=== PATIENT | female | born 1975 | race Caucasian/White ===

== ENCOUNTER 2017-11-09 12:32 | Emergency (ER) | payer OTHER ==
[~2017-11-09] VITALS: Ht 170.2 cm; Wt 69.4 kg
[2017-11-09 12:55] LABS: URINE BILIRUBIN NEGATIVE (Negative); URINE BLOOD 1+ (Negative); URINE CLARITY CLEAR; URINE COLOR YELLOW; URINE GLUCOSE-RANDOM NEGATIVE (Negative); URINE KETONES NEGATIVE (Negative); URINE LEUKOCYTES-REFLEX 1+ (Negative); URINE PROTEIN 1+ (Negative)
[2017-11-09 12:56] LABS: URINE NITRITE-REFLEX POSITIVE (Negative)
[2017-11-09 13:00] LABS: BACTERIA-REFLEX None Seen /HPF (None Seen); CASTS None Seen /LPF (None Seen); CRYSTALS None Seen /LPF (None Seen); MUCUS 0-3 Light strn/LPF (None Seen); SQUAMOUS 4-10 Moderate /LPF (0-3); URINE RBC 3-10 Few /HPF (0-2); URINE WBC-REFLEX 0-5 Rare /HPF (0-5)
[2017-11-09 13:31] LABS: ABSOLUTE EOSINOPHILS 0.1 thou/uL (0.0-0.7); ABSOLUTE LYMPHOCYTES 1.2 thou/uL (0.8-5.3); ABSOLUTE MONOCYTES 1.4 thou/uL (0.0-1.2); BASOPHILS 0.2 %; HEMATOCRIT 35.5 % (37.0-47.0); HEMOGLOBIN 11.7 gm/dL (12.0-15.0); MCH 29.6 pg (26.0-34.0); MCV 89.7 fL (80.0-100.0); MONOCYTES 12.8 %; MPV 8.8 fl. (7.2-11.1); NUCLEATED RBCS 0 /100WBC; PLATELET COUNT* 162 thou/uL (150-400); RBC 3.96 mil/uL (4.20-5.00); RDW-CV 13.1 % (10.5-14.5); WBC 10.7 thou/uL (4.0-11.0)
[2017-11-09 13:46] LABS: CALCIUM 8.9 mg/dL (8.5-10.1); CREATININE 0.9 mg/dL (0.6-1.3); POTASSIUM 3.6 mmol/L (3.5-5.1)
[2017-11-09 13:50] LABS: ALBUMIN 3.7 g/dL (3.4-5.0); TOTAL BILIRUBIN 0.5 mg/dL (<0.1-1.0); TOTAL PROTEIN 7.6 g/dL (6.4-8.2)
[2017-11-09] MEDS ORDERED: ZOFRAN ODT4 MG PO (14:11)
[2017-11-09] MEDS ORDERED: NORCO 5-325 TA1 EACH PO (14:11)
[2017-11-09] MEDS ORDERED: KEFLEX500 M1 PO (14:11)
[2017-11-09 14:19] VITALS: BP 105/68
== END 2017-11-09 14:21 | disposition home or self-care (01) ==
LOC: M.ERS 12:32
PROVIDERS: Family Medicine; Physician Assistant
DX: N12 Tubulo-interstitial nephritis, not specified as acute or chronic (principal); Z90.710 Acquired absence of both cervix and uterus

== ENCOUNTER 2017-12-26 10:06 | Emergency (ER) | payer OTHER ==
[~2017-12-26] VITALS: Ht 170.2 cm; Wt 72.6 kg
[~2017-12-26 10:06] MED LIST: KEFLEX500 M1 PO; NORCO 5-325 TA1 EACH PO; ZOFRAN ODT4 MG PO
[2017-12-26 10:43] LABS: ABSOLUTE EOSINOPHILS 0.1 thou/uL (0.0-0.7); ABSOLUTE LYMPHOCYTES 1.4 thou/uL (0.8-5.3); ABSOLUTE NEUTROPHILS 4.8 thou/uL (1.6-8.1); BASOPHILS 0.5 %; EOSINOPHILS 1.3 %; HEMOGLOBIN 10.9 gm/dL (12.0-15.0); LYMPHOCYTES 19.3 %; MCH 29.3 pg (26.0-34.0); MCHC 33.2 g/dL (28.0-37.0); MCV 88.2 fL (80.0-100.0); MONOCYTES 13.2 %; MPV 7.9 fl. (7.2-11.1); NUCLEATED RBCS 0 /100WBC; PLATELET COUNT* 248 thou/uL (150-400); POLYS 65.7 %; RBC 3.74 mil/uL (4.20-5.00); RDW-CV 13.2 % (10.5-14.5); WBC 7.3 thou/uL (4.0-11.0)
[2017-12-26 11:01] LABS: URINE BILIRUBIN NEGATIVE (Negative); URINE BLOOD TRACE (Negative); URINE CLARITY CLEAR; URINE COLOR YELLOW; URINE GLUCOSE-RANDOM NEGATIVE (Negative); URINE KETONES NEGATIVE (Negative); URINE NITRITE-REFLEX NEGATIVE (Negative); URINE PROTEIN 1+ (Negative); URINE UROBILINOGEN 0.2 E.U./dl (0.2-1.0)
[2017-12-26 11:06] LABS: URINE LEUKOCYTES-REFLEX 2+ (Negative)
[2017-12-26 11:08] LABS: ANION GAP 9 mmol/L (7-16); BUN 17 mg/dL (7-18); CALCIUM 8.9 mg/dL (8.5-10.1); CHLORIDE 105 mmol/L (98-107); CO2 26 mmol/L (21-32); CREATININE 0.8 mg/dL (0.6-1.3); GLUCOSE 114 mg/dL (70-99); POTASSIUM 3.5 mmol/L (3.5-5.1); SODIUM 140 mmol/L (136-145)
[2017-12-26 11:15] LABS: ALBUMIN 3.5 g/dL (3.4-5.0); ALKALINE PHOSPHATASE 99 U/L (46-116); SGOT 15 U/L (15-37); SGPT 28 U/L (30-65); TOTAL BILIRUBIN 0.6 mg/dL (<0.1-1.0); TOTAL PROTEIN 7.7 g/dL (6.4-8.2); TROPONIN-I LEVEL <0.06 ng/mL (<0.06)
[2017-12-26 11:26] LABS: MUCUS 4-6 Moderate strn/LPF (None Seen); SQUAMOUS >10 Many /LPF (0-3); URINE WBC-REFLEX >25 Many /HPF (0-5)
[2017-12-26 11:27] LABS: URINE RBC 3-10 Few /HPF (0-2)
[2017-12-26 11:28] LABS: CASTS None Seen /LPF (None Seen); CRYSTALS None Seen /LPF (None Seen)
[2017-12-26 11:29] LABS: BACTERIA-REFLEX >30 Many /HPF (None Seen)
[2017-12-26] MEDS ORDERED: PHENERGAN 25 MG25 M1 PO (12:16)
[2017-12-26] MEDS ORDERED: BACTRIM DS TAB1 EACH PO (12:16)
[2017-12-26] MEDS ORDERED: HYDROCODONE-AP1 EAC6 PO (12:16)
[2017-12-26 12:36] VITALS: BP 91/62
== END 2017-12-26 12:37 | disposition home or self-care (01) ==
LOC: M.ERS 10:06
PROVIDERS: Physician Assistant
DX: N12 Tubulo-interstitial nephritis, not specified as acute or chronic (principal)

== ENCOUNTER 2017-12-28 10:27 | Inpatient (IN) | payer OTHER ==
[~2017-12-28] VITALS: Ht 170.2 cm; Wt 74.8 kg
[~2017-12-28 10:27] MED LIST changes: +BACTRIM DS TAB1 EACH PO; +HYDROCODONE-AP1 EAC6 PO; +PHENERGAN 25 MG25 M1 PO
[2017-12-28 10:42] VITALS: BP 137/80
[2017-12-28 10:47] LABS: URINE BILIRUBIN NEGATIVE (Negative); URINE BLOOD NEGATIVE (Negative); URINE CLARITY CLEAR; URINE COLOR YELLOW; URINE GLUCOSE-RANDOM NEGATIVE (Negative); URINE KETONES NEGATIVE (Negative); URINE NITRITE-REFLEX NEGATIVE (Negative); URINE PROTEIN NEGATIVE (Negative); URINE UROBILINOGEN 0.2 E.U./dl (0.2-1.0)
[2017-12-28 10:48] LABS: URINE LEUKOCYTES-REFLEX 3+ (Negative)
[2017-12-28 10:59] LABS: BACTERIA-REFLEX 1-9 Few /HPF (None Seen); CASTS None Seen /LPF (None Seen); CRYSTALS None Seen /LPF (None Seen); MUCUS 0-3 Light strn/LPF (None Seen); SQUAMOUS 0-3 Few /LPF (0-3); URINE RBC 0-2 Rare /HPF (0-2); URINE WBC-REFLEX 6-15 Few /HPF (0-5)
[2017-12-28 11:06] LABS: ABSOLUTE EOSINOPHILS 0.2 thou/uL (0.0-0.7); ABSOLUTE LYMPHOCYTES 1.7 thou/uL (0.8-5.3); ABSOLUTE MONOCYTES 0.6 thou/uL (0.0-1.2); ABSOLUTE NEUTROPHILS 3.3 thou/uL (1.6-8.1); BASOPHILS 0.8 %; EOSINOPHILS 3.9 %; HEMATOCRIT 33.9 % (37.0-47.0); HEMOGLOBIN 11.3 gm/dL (12.0-15.0); LYMPHOCYTES 28.8 %; MCH 29.6 pg (26.0-34.0); MCHC 33.4 g/dL (28.0-37.0); MCV 88.6 fL (80.0-100.0); MONOCYTES 9.6 %; NUCLEATED RBCS 0 /100WBC; PLATELET COUNT* 277 thou/uL (150-400); POLYS 56.9 %; RBC 3.82 mil/uL (4.20-5.00); RDW-CV 13.3 % (10.5-14.5); WBC 5.7 thou/uL (4.0-11.0)
[2017-12-28 11:17] LABS: CALCIUM 9.2 mg/dL (8.5-10.1); CREATININE 0.7 mg/dL (0.6-1.3); POTASSIUM 4.4 mmol/L (3.5-5.1)
[2017-12-28 11:21] LABS: ALBUMIN 3.5 g/dL (3.4-5.0); TOTAL BILIRUBIN 0.3 mg/dL (<0.1-1.0); TOTAL PROTEIN 8.1 g/dL (6.4-8.2)
[2017-12-28 12:26] LABS: AMP/METHAMP Negative (Negative); BARBITURATES Negative (Negative); BENZODIAZEPINES Negative (Negative); COCAINE Negative (Negative); METHADONE Negative (Negative); OPIATES POSITIVE (Negative); PCP Negative (Negative); THC Negative (Negative)
[2017-12-28 13:33] VITALS: BP 106/70
[2017-12-28 13:45] VITALS: BP 112/70
[2017-12-28 15:33] VITALS: BP 102/62
[2017-12-28 15:49] VITALS: BP 102/62
[2017-12-28 20:30] VITALS: BP 120/82
[2017-12-29 04:35] LABS: CALCIUM 8.4 mg/dL (8.5-10.1); CREATININE 0.8 mg/dL (0.6-1.3); POTASSIUM 4.4 mmol/L (3.5-5.1)
[2017-12-29 04:41] LABS: ABSOLUTE EOSINOPHILS 0.2 thou/uL (0.0-0.7); ABSOLUTE LYMPHOCYTES 2.1 thou/uL (0.8-5.3); ABSOLUTE MONOCYTES 0.5 thou/uL (0.0-1.2); ABSOLUTE NEUTROPHILS 1.9 thou/uL (1.6-8.1); BASOPHILS 0.8 %; EOSINOPHILS 4.4 %; HEMATOCRIT 30.6 % (37.0-47.0); HEMOGLOBIN 10.3 gm/dL (12.0-15.0); LYMPHOCYTES 44.5 %; MCH 30.1 pg (26.0-34.0); MCHC 33.8 g/dL (28.0-37.0); MONOCYTES 11.2 %; MPV 8.6 fl. (7.2-11.1); NUCLEATED RBCS 0 /100WBC; PLATELET COUNT* 245 thou/uL (150-400); POLYS 39.1 %; RBC 3.44 mil/uL (4.20-5.00); RDW-CV 13.1 % (10.5-14.5); WBC 4.7 thou/uL (4.0-11.0)
[2017-12-29 07:42] VITALS: BP 98/66
[2017-12-29 15:31] VITALS: BP 102/73
[2017-12-29 20:45] VITALS: BP 110/75
[2017-12-30 08:20] VITALS: BP 130/87
[2017-12-30] MEDS ORDERED: CEFUROXIME500 MG PO (12:01)
[2017-12-30] MEDS ORDERED: PERCOCET PO (12:02)
[2017-12-30 12:12] VITALS: BP 130/87
[2017-12-30 15:00] VITALS: BP 130/87
== END 2017-12-30 14:30 | disposition home or self-care (01) | DRG 690 ==
LOC: M.ERS 10:27 → M.TBA-ER 12:03 → M.ORTHSURG 12:03
PROVIDERS: Physician Assistant; ADMIT Internal Medicine
DX: N12 Tubulo-interstitial nephritis, not specified as acute or chronic (principal); E86.0 Dehydration; Z60.2 Problems related to living alone; N76.0 Acute vaginitis; Z79.899 Other long term (current) drug therapy; Z90.710 Acquired absence of both cervix and uterus

== ENCOUNTER 2020-07-16 15:09 | Emergency (ER) | payer OTHER ==
[~2020-07-16] VITALS: Ht 170.2 cm; Wt 95.3 kg
[~2020-07-16 15:09] MED LIST changes: +CEFUROXIME500 MG PO; +PERCOCET PO
[2020-07-16] MEDS ORDERED: VENTOLIN HFA 1818 GM INH (15:53)
[2020-07-16] MEDS ORDERED: TESSALON PERLE100 MG PO (15:53)
[2020-07-16] MEDS ORDERED: ZPAK PO (15:53)
[2020-07-16 17:24] VITALS: BP 132/70
--- NOTE | 2020-07-17 13:11 | EKG ---
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
== END 2020-07-16 17:24 | disposition home or self-care (01) ==
LOC: M.ERS 15:09
DX: U07.1 COVID-19 (principal); Z90.710 Acquired absence of both cervix and uterus

== ENCOUNTER 2020-07-24 12:54 | Emergency (ER) | payer OTHER ==
[~2020-07-24] VITALS: Ht 170.2 cm; Wt 97.5 kg
[~2020-07-24 12:54] MED LIST changes: +TESSALON PERLE100 MG PO; +VENTOLIN HFA 1818 GM INH; +ZPAK PO
[2020-07-24] MEDS ORDERED: VITAMIN D-40010 MCG PO (13:07)
[2020-07-24] MEDS ORDERED: PHENERGAN 25 MG25 M1 PO (14:45)
[2020-07-24 14:55] VITALS: BP 125/70
== END 2020-07-24 14:57 | disposition home or self-care (01) ==
LOC: M.ERS 12:54
DX: U07.1 COVID-19 (principal); Z90.710 Acquired absence of both cervix and uterus; Z79.899 Other long term (current) drug therapy